=== PATIENT | female | born 1995 | race Hispanic/Latino ===

== ENCOUNTER 2024-01-10 12:21 | Outpatient (CLI) | payer OTHER, SELFPAY ==
[2024-01-10 13:15] VITALS: BP 106/57; PULSE 84
[2024-01-10 13:16] LABS: Basophils Percent Auto 0.2 % (0.2-1.2); Eosinophils Absolute Auto 0.1 K/mm3 (0-0.3); Eosinophils Percent Auto 0.7 % (0-4.4); Hematocrit 35.3 % (37.0-47.0); Hemoglobin 11.6 g/dL (12.0-15.0); Immature Granulocyte Absolute 0.06 K/mm3 (0.00-0.031); Immature Granulocyte Percent A 0.7 % (0-0.5); Lymphocytes Absolute Auto 1.45 K/mm3 (0.9-3.2); Lymphocytes Percent Auto 16.2 % (18.3-44.2); Mean Corpuscular HGB Conc 32.9 g/dl (32-36); Mean Corpuscular Volume 88.3 fl (80-100); Mean Platelet Volume 9.1 fl (7.4-10.4); Monocytes Absolute Auto 0.6 K/mm3 (0.1-0.6); Monocytes Percent Auto 6.4 % (2.6-8.5); Neutrophils Absolute Auto 6.8 K/mm3 (1.3-6.7); Neutrophils Percent Auto 75.8 % (45.5-73.1); Platelet Count Result 355 k/mm3 (150-375); Red Cell Distribution Width 14.1 % (11.5-14.5); White Blood Count 8.9 K/mm3 (4.5-10.0)
[2024-01-10 13:16] LABS: Appearance Urine Clear (Clear); Bilirubin Urine Negative (Negative); Blood Urine Negative (Negative); Color Urine Yellow (Yellow); Glucose Urine UA Negative (Negative); Ketones Urine Negative (Negative); Leukocyte Esterase Ur Negative LEU/UL (Negative); Nitrate Urine Negative (Negative); Protein Urine Negative (Negative); Specific Grav Ur 1.005 (1.001-1.035); Urobilinogen Urine 0.2 mg/dL (<2.0); pH Urine 6.5 (5.0-9.0)
[2024-01-10 13:17] LABS: Add Urine Microscopic? YES
[2024-01-10 13:29] VITALS: BP 109/63; PULSE 88
[2024-01-10 13:33] LABS: Alanine Aminotransferase 19 U/L (6-35); Albumin Level 4.2 g/dL (3.5-5.1); Alkaline Phosphatase 60 U/L (38-126); Anion Gap 8 mmol/L (4-12); Aspartate Amino Transferase 27 U/L (14-36); Bilirubin,Total 0.3 mg/dL (0.2-1.3); Blood Urea Nitrogen 8 mg/dL (7-17); Calcium 9.3 mg/dL (8.4-10.2); Carbon Dioxide 23 mmol/L (22-30); Chloride 106 mmol/L (98-107); Estimated Glomerular Filt Rate > 60; Glucose 87 mg/dL (65-110); Sodium 137 mmol/L (137-145); Uric Acid 2.9 mg/dL (2.5-7.5)
[2024-01-10 13:33] LABS: Creatinine Urine 17.9 mg/dL; Total Protein Urine Random 12 mg/dL; Ur Ttl Prot Creatinine Ratio 0.67 mg/mg (0-0.20)
[2024-01-10 13:35] VITALS: BP 108/53; PULSE 80
[2024-01-10 13:44] VITALS: BP 108/53; PULSE 80
== END 2024-01-10 14:00 | disposition home or self-care (01) ==
LOC: ANHOBOP 12:44 → ANHOBPP 12:46
PROVIDERS: Advanced Practice Midwife; Visit Provider Obstetrics & Gynecology
DX: O13.9 Gestational [pregnancy-induced] hypertension without significant proteinuria, unspecified trimester (principal); Z3A.00 Weeks of gestation of pregnancy not specified
CPT/HCPCS: 36415; 80053; 81001; 82570; 84156; 84550; 85025; 99199

== ENCOUNTER 2024-01-11 13:27 | Outpatient (CLI) | payer OTHER, SELFPAY ==
[2024-01-11 13:37] VITALS: BMI 28.8
[2024-01-11 14:20] LABS: Collection Time Urine 24 HOURS
[2024-01-11 14:59] LABS: Patient Weight 157 Lbs; Total Volume 24 Hour Urine 3000 ml
[2024-01-11 15:02] LABS: Specific Gravity Ur 1.015
[2024-01-11 15:16] LABS: Creatinine Urine 40.3 mg/dL; Total Protein Urine 24 Hr 300 mg/24hr (28-141); Total Protein Urine Random 10 mg/dL
== END 2024-01-11 13:28 | disposition home or self-care (01) ==
LOC: ANHOBOP 13:32
PROVIDERS: Visit Provider Advanced Practice Midwife
DX: Z34.90 Encounter for supervision of normal pregnancy, unspecified, unspecified trimester (principal); Z3A.00 Weeks of gestation of pregnancy not specified
CPT/HCPCS: 81050; 82575; 84156

== ENCOUNTER 2024-04-18 04:47 | Inpatient (IN) | payer OTHER, MEDICAID, SELFPAY ==
[2024-04-18] VITALS (261 sets, daily range): BP systolic 81–154; BP diastolic 43–111; PULSE 62–180; TEMP 36.6–36.9; O2SAT 87–100
[2024-04-18 05:30] LABS: Basophils Percent Auto 0.1 % (0.2-1.2); Eosinophils Absolute Auto 0.1 K/mm3 (0-0.3); Eosinophils Percent Auto 1.3 % (0-4.4); Hematocrit 36.5 % (37.0-47.0); Hemoglobin 12.2 g/dL (12.0-15.0); Immature Granulocyte Percent A 0.9 % (0-0.5); Lymphocytes Absolute Auto 1.75 K/mm3 (0.9-3.2); Lymphocytes Percent Auto 16.3 % (18.3-44.2); Mean Corpuscular HGB Conc 33.4 g/dl (32-36); Mean Corpuscular Hemoglobin 29.1 pg (26-34); Mean Corpuscular Volume 87.1 fl (80-100); Mean Platelet Volume 9.2 fl (7.4-10.4); Monocytes Absolute Auto 0.7 K/mm3 (0.1-0.6); Monocytes Percent Auto 6.5 % (2.6-8.5); Neutrophils Percent Auto 74.9 % (45.5-73.1); Platelet Count Result 355 k/mm3 (150-375); Red Blood Count 4.19 M/mm3 (4.2-5.4); Red Cell Distribution Width 14.1 % (11.5-14.5); White Blood Count 10.7 K/mm3 (4.5-10.0)
[2024-04-18] MEDS: AMPICILLIN 2 GM/NS 100 ML 2 GM/100 ML BAG IVPB (05:38)
[2024-04-18] MEDS: LACTATED RINGERS 1,000 ML 125 ML IV CONT ×4 (05:38→18:04)
[2024-04-18] MEDS: miSOPROStol 25 MCG TABLET 50 MCG BUCCAL (05:41)
[2024-04-18 06:23] LABS: HIV 1/2 Ab P24 Ag Result Negative (Negative)
--- NOTE | 2024-04-18 07:17 | P.PNAN_ITS ---
Anes - Eval Pre Procedure Procedure: LABOR EPIDURAL Date/Time: 04/18/24 07:17 Surgeon: RANDY Preop Diagnosis: PAIN DURING LABOR Pre Op Diagnosis: Leaking Patient Data Age: 28 Gender: F Height: Weight: Last Vital Signs Pulse 94 04/18/24 07:04 BP 135/98 H 04/18/24 07:04 Pulse Ox 99 04/18/24 07:16 Allergies Allergy/AdvReac Type Severity Reaction Status Date / Time No Known Allergies Allergy Verified 04/09/24 14:18 Home Medications Medication Instructions Recorded Confirmed Type vits no.126-ferrous fum 1 tablet PO DAILY 04/09/24 04/09/24 History 28 mg iron-folic acid 800 mcg tablet (Classic ) Laboratory Tests 04/18/24 05:20 WBC 10.7 H K/mm3 (4.5-10.0) RBC 4.19 L M/mm3 (4.2-5.4) Hgb 12.2 g/dL (12.0-15.0) Hct 36.5 L % (37.0-47.0) MCV 87.1 fl (80-100) MCH 29.1 pg (26-34) MCHC 33.4 g/dl (32-36) RDW 14.1 % (11.5-14.5) Plt Count 355 k/mm3 (150-375) MPV 9.2 fl (7.4-10.4) Immature Gran % (Auto) 0.9 H % (0-0.5) Neut % (Auto) 74.9 H % (45.5-73.1) Lymph % (Auto) 16.3 L % (18.3-44.2) [place] % (Auto) 6.5 % (2.6-8.5) Eos % (Auto) 1.3 % (0-4.4) Baso % (Auto) 0.1 L % (0.2-1.2) Lymph # (Auto) 1.75 K/mm3 (0.9-3.2) [place] # (Auto) 0.7 H K/mm3 (0.1-0.6) Eos # (Auto) 0.1 K/mm3 (0-0.3) Baso # (Auto) 0.0 K/mm3 (0.0-0.1) Abs Immat Gran (auto) 0.10 H K/mm3 (0.00-0.031) Absolute Neuts (auto) 8.0 H K/mm3 (1.3-6.7) Absolute Nucleated RBC 0.000 K/mm3 (0.0-0.012) Nucleated RBC % 0.0 % (0.0-0.2) RPR Pending HIV 1&2 Ab/P24 Ag 4thGn Negative (Negative) Blood Type B Positive Antibody Screen Negative Patient hx anesthesia problems: none Family hx anesthesia problems: none Results Review: All pre-operative results and documents have been reviewed as part of the pre- operative evaluation. [facility] Past Medical History Medical History (Updated 04/18/24 @ 07:18 by Milli Poon CRNA) IUP (intrauterine ), incidental Family History Family History (Updated 04/09/24 @ 14:37 by Carol Serrano RN) Other Unknown family medical history Social History Social History Substance use: never Spiritual care concerns: No Exam Day of Procedure 04/18/24 07:17
[2024-04-18] MEDS: AMPICILLIN 1 GM/NS 50 ML 1 GM/50 ML BAG IVPB ×3 (09:49→21:30)
[2024-04-18] MEDS: OXYTOCIN 30 UNITS/NS 500 ML 30 UNITS/500 ML BAG IV CONT (10:35)
[2024-04-18 11:56] LABS: Rapid Plasma Reagin Non-Reactive (NonReactive)
--- NOTE | 2024-04-18 13:32 | WPDOBADMIT ---
Obstetrics - Admit Note Admission Note: record reviewed. No pertinent additions to the history and/or any subsequent changes in the physical findings that are not consistent with the expected course of the were found. Patient presents after SROM of clear fluid at 0330. No fevers or chills, good movement. No strong contractions. S/p cytotec x1. Pitocin per protocol Additions to the history and/or subsequent changes in the physical findings follow. None.
[2024-04-18] MEDS: SODIUM CHLORIDE 0.9% IV 300 ML 600 ML I-UTERINE (17:46)
[2024-04-18] MEDS: ONDANSETRON INJ 4 MG/2 ML VIAL IV PUSH (22:13)
[2024-04-19] VITALS (30 sets, daily range): BP systolic 102–147; BP diastolic 45–83; PULSE 73–118; RESP 14–23; TEMP 36.4–37.1; O2SAT 97–100
--- NOTE | 2024-04-19 00:23 | PM.IMHP ---
H&P: HPI History of Present Illness Date/Time: 04/19/24 00:23 Chief Complaint: update CNM at , pitocin turned off due to intolerance to labor, pt comfortable with epidural. Review of Systems Review of Systems: All systems reviewed & are unremarkable except as noted in HPI and below PMFSH Past Medical History Medical History (Updated 04/19/24 @ 00:39 by Marylou Espino CNM) IUP (intrauterine ), incidental Family History Family History (Updated 04/09/24 @ 14:37 by Carol Serrano RN) Other Unknown family medical history Social History Social History Smoking status: Never smoker Substance use: never Do You Feel Safe in your Home?: Yes Lack of Transportation: No Lack of Food: Never True Current Housing: I Have Housing Concerned About Future Housing: No Difficulty Paying Gas/Electric Bills: No Difficulty Paying for Meds: No Currently Unemployed: No Education: Trade/Vocational Certificate Difficulty w/ Childcare or Family Care: No Spiritual care concerns: No Meds Home Medications and Allergies Home Medications Medication Instructions Recorded Confirmed Type vits no.126-ferrous fum 1 tablet PO DAILY 04/09/24 04/09/24 History 28 mg iron-folic acid 800 mcg tablet (Classic ) Allergies Allergy/AdvReac Type Severity Reaction Status Date / Time No Known Allergies Allergy Verified 04/09/24 14:18 Vital Signs Vital Signs - 24 hr 04/18/24 05:01 04/18/24 05:06 04/18/24 05:11 Temperature Pulse Rate Blood Pressure Pulse Oximetry 99 99 98 Oxygen Delivery 04/18/24 05:16 04/18/24 05:19 04/18/24 05:43 Temperature Pulse Rate Blood Pressure Pulse Oximetry 98 97 97 Oxygen Delivery 04/18/24 05:48 04/18/24 05:53 04/18/24 05:58 Temperature Pulse Rate Blood Pressure Pulse Oximetry 100 99 98 Oxygen Delivery 04/18/24 06:03 04/18/24 06:08 04/18/24 06:13 Temperature Pulse Rate Blood Pressure Pulse Oximetry 99 100 99 Oxygen Delivery 04/18/24 06:18 04/18/24 06:23 04/18/24 06:27 Temperature Pulse Rate Blood Pressure Pulse Oximetry 100 100 98 Oxygen Delivery 04/18/24 06:28 04/18/24 06:33 04/18/24 06:33 Temperature Pulse Rate Blood Pressure Pulse Oximetry 96 99 97 Oxygen Delivery 04/18/24 06:35 04/18/24 06:38 04/18/24 06:43 Temperature Pulse Rate Blood Pressure Pulse Oximetry 99 99 99 Oxygen Delivery 04/18/24 06:48 04/18/24 06:53 04/18/24 06:58 Temperature Pulse Rate Blood Pressure Pulse Oximetry 100 99 100 Oxygen Delivery 04/18/24 07:03 04/18/24 07:04 04/18/24 07:10 Temperature Pulse Rate 94 Blood Pressure 135/98 H Pulse Oximetry 100 99 Oxygen Delivery 04/18/24 07:16 04/18/24 07:21 04/18/24 07:26 Temperature Pulse Rate Blood Pressure Pulse Oximetry 99 99 99 Oxygen Delivery 04/18/24 07:30 04/18/24 07:31 04/18/24 07:36 Temperature Pulse Rate 87 Blood Pressure 119/73 Pulse Oximetry 100 100 Oxygen Delivery 04/18/24 07:41 04/18/24 07:46 04/18/24 07:51 Temperature Pulse Rate Blood Pressure Pulse Oximetry 99 100 100 Oxygen Delivery 04/18/24 07:56 04/18/24 08:00 04/18/24 08:01 Temperature 36.6 C Pulse Rate 93 Blood Pressure 127/75 Pulse Oximetry 100 94 Oxygen Delivery 04/18/24 08:01 04/18/24 08:06 04/18/24 08:11 Temperature Pulse Rate Blood Pressure Pulse Oximetry 99 100 100 Oxygen Delivery 04/18/24 08:15 04/18/24 08:20 04/18/24 08:25 Temperature Pulse Rate Blood Pressure Pulse Oximetry 100 100 99 Oxygen Delivery 04/18/24 08:30 04/18/24 08:37 04/18/24 08:42 Temperature Pulse Rate 94 Blood Pressure 114/65 Pulse Oximetry 99 99 100 Oxygen Delivery 04/18/24 08:47 04/18/24 08:52 04/18/24 08:57 Temperature Pulse Rate Blood Press
[2024-04-19] MEDS: LACTATED RINGERS 1,000 ML 125 ML IV CONT (00:30)
[2024-04-19] MEDS: FAMOTIDINE 20 MG/2 ML VIAL IV PUSH (00:44)
[2024-04-19] MEDS: ACETAMINOPHEN 500 MG TABLET 1000 MG PO (00:45)
[2024-04-19] MEDS: ceFAZolin 2 GM/D5W 50 ML 2 GM/50 ML BAG IVPB (01:20)
[2024-04-19] MEDS: AZITHROMYCIN 500 MG/NS 250 ML 500 MG/250 ML BAG 250 MG IVPB (01:29)
--- NOTE | 2024-04-19 02:05 | W.PM.OBCSD ---
OB - Delivery Note Procedure Delivery date: 04/19/24 Pre-op diagnosis: Non-Reassuring Status and Positive Group B Strep (GBS) Post-op Diagnosis: Same Induction method: Per Misoprostol Protocol Delivery augmentation: Pitocin Delivery monitor: External FHT Prior to decision for section, ACOG/SM labor guidelines were considered and discussed with the patient and staff. Decision made to proceed with the section.: Yes Procedure Performed: Primary Primary branch: low cervical, transverse Surgeon: Robbie Mueller MD Anesthesia type: Epidural Description of Procedure/Findings: The patient was taken to the operating room where she was placed in the dorsal supine position with a leftward tilt. The electronic monitor was placed and heart rate was found to be reassuring. She was prepped and draped in the normal sterile fashion, and anesthesia was checked to be adequate. A Pfannenstiel skin incision was made with the scalpel and carried through to the underlying layer of fascia with the scalpel. The fascia was incised in the midline and the incision extended laterally with the Chopra scissors. The superior aspect of the fascial incision was then grasped with Gómez clamps, elevated, and the underlying rectus muscles dissected off bluntly and with Chopra scissors. Attention was then turned to the inferior aspect of the fascial incision, which in similar fashion was grasped, elevated, and the rectus muscles dissected off.? The rectus muscles were then in the midline, and the peritoneum entered bluntly. The peritoneal incision was extended superiorly and inferiorly with good visualization of the bladder. With the bladder blade providing retraction and visualization, the lower uterine segment was incised in a transverse fashion with the scalpel. The uterine incision was then extended laterally. The bladder blade was removed and the infant's head was elevated and delivered atraumatically. The remainder of the infant was then delivered without difficulty, and the infant's nose and mouth were suctioned with the bulb suction. The umbilical cord was doubly clamped and cut. The was then handed off to the waiting nursing staff. Specimens then obtained as listed below. The placenta was then removed manually and the uterus was exteriorized and cleared of all clots and debris. The uterine incision was repaired with 0-Monocryl in a running, interlocked fashion. The posterior cul-de-sac was manually cleared of all clots and debris. The uterus was returned to the abdomen. The gutters were then manually cleared of all clots and debris.? The uterine incision was visualized to be hemostatic. The fascia was reapproximated with 0-Vicryl in a running fashion. The subcutaneous tissues were irrigated with warmed normal saline, and hemostasis was assured. The skin was closed with 4-0 Monocryl in a running subcuticular stitch. Fundal pressure was applied to express remaining intrauterine clots and debris. The patient tolerated the procedure well. Sponge, lap, and needle counts were correct times three per nursing. The patient was taken to the recovery room in stable condition. Specimen: No Estimated Blood Loss: 215 Pathology: None sent Complications: No immediate complications Condition: Stable Disposition: Floor Baby Date of : 04/19/24 Weeks of gestation at delivery: 37 Infant gender: Female Weight (pounds): 5 Weight (ounces): 13 presentation: vertex position: Right Occiput Posterior Placenta delivery description: Expressed Cord Vessel Description: Delayed Cord Clamping and Around Extremity
[2024-04-19] MEDS: MORPHINE SULFATE INJ (*CRX) 10 MG/ML AMP 2 MG IV PUSH ×2 (03:20→03:55)
[2024-04-19] MEDS: OXYTOCIN 30 UNITS/NS 500 ML 30 UNITS/500 ML BAG 125 UNITS IV CONT (04:01)
--- NOTE | 2024-04-19 04:45 | OBPPTRN ---
Patient transferred to post room #286 via stretcher. Support person present. Oriented to unit, room, information board, rooming in, admission packet and security measures. Patient verbalizes understanding.
[2024-04-19] MEDS: DEXTROSE 5%/0.45% SOD CHL 1,000 ML 125 ML IV CONT (07:06)
[2024-04-19] MEDS: KETOROLAC 15 MG/ML VIAL (*BKC) IV PUSH ×3 (07:07→19:20)
[2024-04-19] MEDS: LIDOCAINE 5% PATCH 1 PATCH TRANSDERM (07:07)
[2024-04-19] MEDS: MULTIVIT/MIN/PREN/FOL AC/IRON TABLET 1 TAB PO (07:07)
[2024-04-19] MEDS: ACETAMINOPHEN 325 MG TABLET 650 MG PO ×3 (07:07→19:20)
[2024-04-19] MEDS: SIMETHICONE 80 MG TAB.CHEW PO ×3 (07:07→19:19)
[2024-04-19] MEDS: DOCUSATE SODIUM 100 MG CAPSULE PO (07:07)
--- NOTE | 2024-04-19 08:13 | WPDANLDNPN2 ---
Anes-Prog Note L&D-Neuraxial Date/Time: 04/19/24 08:13 Neuraxial medications: epidural PF morphine Opiod-related complaints: none Patient feedback: Patient satisfied with post-operative pain management.
--- NOTE | 2024-04-19 08:14 | WPDANLDPN2 ---
Anes-Prog Note L&D Date/Time: 04/19/24 08:14 Comfortable throughout: labor, delivery and section Neuraxial method: epidural Epidural/Spinal procedure site: clean & non-tender Neuro status: Neuro function grossly intact. Cardiovascular status: normal Respiratory status: normal Airway patency: baseline Mental status: baseline Post-Op hydration status: normal Vital Signs: Last Vital Signs Temp 36.6 C 04/19/24 02:08 Pulse 90 04/19/24 04:08 Resp 15 04/19/24 04:08 BP 147/65 H 04/19/24 04:08 Pulse Ox 100 04/19/24 04:08 O2 Del Method Room Air 04/19/24 04:08 Pain score (VAS): 2 I/O: Intake & Output 04/18/24 04/19/24 04/19/24 23:59 07:59 15:59 Intake Total 1000 1000 Output Total 290 Balance 1000 710 Patient feedback: Patient satisfied with anesthetic care.
[2024-04-19] MEDS: LORATADINE 10 MG TABLET PO (20:03)
[2024-04-20] MEDS: KETOROLAC 15 MG/ML VIAL (*BKC) IV PUSH (01:14)
[2024-04-20] MEDS: ACETAMINOPHEN 325 MG TABLET 650 MG PO ×4 (01:16→20:55)
[2024-04-20] MEDS: HYDROcodone/acetaminophen (*CRX) 5-325 MG TABLET 1 TAB PO (01:21)
[2024-04-20 04:45] VITALS: BP 106/65; PULSE 110; RESP 20; TEMP 37.3; O2SAT 99
[2024-04-20 05:52] LABS: Basophils Percent Auto 0.1 % (0.2-1.2); Eosinophils Absolute Auto 0.1 K/mm3 (0-0.3); Eosinophils Percent Auto 1.3 % (0-4.4); Hematocrit 33.2 % (37.0-47.0); Hemoglobin 10.3 g/dL (12.0-15.0); Immature Granulocyte Absolute 0.04 K/mm3 (0.00-0.031); Immature Granulocyte Percent A 0.4 % (0-0.5); Lymphocytes Absolute Auto 1.45 K/mm3 (0.9-3.2); Mean Corpuscular Volume 90.2 fl (80-100); Mean Platelet Volume 9.4 fl (7.4-10.4); Monocytes Absolute Auto 0.7 K/mm3 (0.1-0.6); Monocytes Percent Auto 6.4 % (2.6-8.5); Neutrophils Absolute Auto 8.8 K/mm3 (1.3-6.7); Neutrophils Percent Auto 78.8 % (45.5-73.1); Platelet Count Result 287 k/mm3 (150-375); Red Blood Count 3.68 M/mm3 (4.2-5.4); Red Cell Distribution Width 14.6 % (11.5-14.5); White Blood Count 11.2 K/mm3 (4.5-10.0)
[2024-04-20 07:55] VITALS: BP 105/57; PULSE 101; RESP 18; TEMP 36.4; O2SAT 100
[2024-04-20 08:00] VITALS: PULSE 101; RESP 18; O2SAT 100
--- NOTE | 2024-04-20 08:32 | WPDANLDNPN2 ---
Anes-Prog Note L&D-Neuraxial Date/Time: 04/20/24 08:32 Neuraxial medications: epidural PF morphine Opiod-related complaints: none Patient feedback: Patient satisfied with post-operative pain management.
--- NOTE | 2024-04-20 08:32 | WPDANLDPN2 ---
Anes-Prog Note L&D Date/Time: 04/20/24 08:32 Comfortable throughout: labor, delivery and section Neuraxial method: epidural Epidural/Spinal procedure site: clean & non-tender Neuro status: Neuro function grossly intact. Cardiovascular status: normal Respiratory status: normal Airway patency: baseline Mental status: baseline Post-Op hydration status: normal Vital Signs: Last Vital Signs Temp 36.4 C 04/20/24 07:55 Pulse 101 H 04/20/24 07:55 Resp 18 04/20/24 07:55 BP 105/57 L 04/20/24 07:55 Pulse Ox 100 04/20/24 07:55 O2 Del Method Room Air 04/19/24 04:08 Pain score (VAS): 2/10 I/O: Intake & Output 04/19/24 04/20/24 04/20/24 23:59 07:59 15:59 Output Total 850 Balance -850 Patient feedback: Patient satisfied with anesthetic care.
[2024-04-20] MEDS: DOCUSATE SODIUM 100 MG CAPSULE PO ×2 (08:52→17:46)
[2024-04-20] MEDS: MULTIVIT/MIN/PREN/FOL AC/IRON TABLET 1 TAB PO (08:52)
[2024-04-20] MEDS: SIMETHICONE 80 MG TAB.CHEW PO ×3 (08:53→17:46)
[2024-04-20] MEDS: IBUPROFEN 600 MG TABLET PO ×3 (08:53→20:55)
[2024-04-20] MEDS: LIDOCAINE 5% PATCH 1 PATCH TRANSDERM (11:40)
--- NOTE | 2024-04-20 13:10 | PC.NURSE ---
1125-Mother stated she wanted help to breastfeed; RN helped mother using the [employer] Wrapping Machine Operator. Mother was shown cross-cradle and football positions. Baby would grasp breast and suckle a few times but then falls asleep. RN told mother that she could attempt each feeding and if baby does not latch, she should give baby formula supplement. Mother stated that baby is still spitty and doesn't burp very good. RN demonstrated some ways to burp baby and explained that babies tend to take in more fluids/mucus at . Mother was afraid it was something she was doing wrong; RN assured mother that was not the case. RN instructed mother to call for help with .
[2024-04-20] MEDS: guaiFENesin 12 HR 600 MG TABCR PO (13:26)
[2024-04-20 20:25] VITALS: BP 108/70; PULSE 92; RESP 18; TEMP 37.2; O2SAT 100
[2024-04-20] MEDS: guaiFENesin/DEXTROMETHORPHAN 10 ML UDC 20 ML PO (20:55)
[2024-04-20] MEDS: HYDROcodone/acetaminophen (*CRX) 10-325 MG TABLET 1 TAB PO (20:55)
[2024-04-21] MEDS: IBUPROFEN 600 MG TABLET PO ×3 (04:05→20:35)
[2024-04-21] MEDS: ACETAMINOPHEN 325 MG TABLET 650 MG PO ×4 (04:05→20:36)
[2024-04-21] MEDS: guaiFENesin/DEXTROMETHORPHAN 10 ML UDC 20 ML PO (04:20)
--- NOTE | 2024-04-21 08:24 | PM.OBPNVD ---
OB - PN: Subj Subjective Date/time seen: 04/21/24 08:24 Patient comments: no complaints, pain well controlled, incisional pain, tolerating diet and flatus present OB - PN: Obj Data Labs 04/20/24 04:47 OB - PN A/P Plan day: 2 Plan: routine care Comments: POD#2 LTCS - no problems, Time Spent With Patient Time: Total time spent is greater than 50% in coordination of care (as documented) at patient's floor/unit and/or counseling patient: Exam Const: General: comfortable, no acute distress and alert Resp: Effort & Inspection: normal respiratory effort Auscultation: no crackles, no rales and no rhonchi Cardio: Rate: regular rate Heart sounds: no click, no murmurs and no rubs GI: Inspection: non-distended Auscultation: normal bowel sounds Other: Incision - CDI Extrem: General: normal to inspection, no pedal edema and no calf tenderness
[2024-04-21] MEDS: MULTIVIT/MIN/PREN/FOL AC/IRON TABLET 1 TAB PO (10:15)
[2024-04-21] MEDS: SIMETHICONE 80 MG TAB.CHEW PO ×2 (10:16→20:35)
[2024-04-21 10:18] VITALS: BP 114/70; PULSE 93; RESP 16; TEMP 37; O2SAT 96
[2024-04-21 19:56] VITALS: BP 118/60; PULSE 108; RESP 16; TEMP 37.3; O2SAT 100
[2024-04-21] MEDS: DOCUSATE SODIUM 100 MG CAPSULE PO (20:35)
[2024-04-21] MEDS: HYDROcodone/acetaminophen (*CRX) 5-325 MG TABLET 1 TAB PO ×2 (20:35→21:30)
[2024-04-21] MEDS: guaiFENesin 12 HR 600 MG TABCR PO (20:35)
[2024-04-21] MEDS: LIDOCAINE 5% PATCH 1 PATCH TRANSDERM (20:43)
--- NOTE | 2024-04-22 02:31 | PC.NURSE ---
04/21/98 at 2200 Patient viewed the version of the discharge video Mother & Baby Care, The First Two Weeks . Patient was given the opportunity and encouraged to ask questions. Patient verbalized understanding of information shared and has been given the mother/baby guide for home reference.
[2024-04-22] MEDS: ACETAMINOPHEN 325 MG TABLET 650 MG PO ×2 (03:00→09:05)
[2024-04-22] MEDS: IBUPROFEN 600 MG TABLET PO ×2 (03:00→09:05)
[2024-04-22 09:05] VITALS: BP 114/80; PULSE 77; RESP 16; TEMP 37; O2SAT 100
[2024-04-22] MEDS: SIMETHICONE 80 MG TAB.CHEW PO (09:05)
[2024-04-22] MEDS: MULTIVIT/MIN/PREN/FOL AC/IRON TABLET 1 TAB PO (09:05)
[2024-04-22] MEDS: guaiFENesin 12 HR 600 MG TABCR PO (09:05)
--- NOTE | 2024-04-22 10:10 | PM.OBPNVD ---
OB - PN: Subj Subjective Date/time seen: 04/22/24 10:10 Patient comments: no complaints, pain well controlled, incisional pain, tolerating diet and flatus present OB - PN: Obj Data Labs 04/20/24 04:47 OB - PN A/P Plan day: 3 Plan: routine care, discharge home and other Comments: Incision check in one week. Given precautions Time Spent With Patient Time: Total time spent is greater than 50% in coordination of care (as documented) at patient's floor/unit and/or counseling patient: Exam Const: General: comfortable, no acute distress and alert Resp: Effort & Inspection: normal respiratory effort Auscultation: no crackles, no rales and no rhonchi Cardio: Rate: regular rate Heart sounds: no click, no murmurs and no rubs GI: Inspection: non-distended GI Palp: No Tenderness to palpation present (GI) Auscultation: normal bowel sounds Other: Incision - CDI Extrem: General: normal to inspection, no pedal edema and no calf tenderness
--- NOTE | 2024-04-22 10:12 | PM.OBDSVD ---
DS: Admitting Diagnosis Discharge Date April 22, 2024 Admitting Diagnosis term DS: Discharge Diagnosis Discharge Diagnosis (1) delivery delivered: Code(s): O82 - Encounter for delivery without indication Status: Acute OB - DS: Summary OB Procedures : None OB Procedures Intrapartum: OB Procedures: : None Peripartum Data Procedures: Procedures Operation Date: 04/19/24 00:25 Actual Procedure Side Surgeon p Section Not Applicable Robbie Mueller MD Time Spent with Patient Time attestation: Total time spent providing and/or coordinating discharge services: DS: Data Data Completed and Pending Pending studies at discharge: Pending at discharge 04/19/24 01:37 Surgical [PTH] Routine Discharge Plan Discharge Discharging Clinician: Momo Patel Patient Disposition: Home, Self-Care Activity: pelvic rest Diet: regular Patient Instructions: Antibiotic Form Stand Alone Forms: General Discharge Information Follow-up/Referrals: Momo Patel MD [Physician] - Discharge Medications: Continued Classic 28 mg iron- 800 mcg Tablet 1 tablet PO DAILY Date of admission: 04/18/24 04:47 Primary Care Provider: UNKNOWN,DOCTOR Admitting Provider: Robbie Mueller Attending physician on admission: Robbie Mueller Condition: Stable
--- NOTE | 2024-04-24 16:03 | WPDHPUPDATE1 ---
History and Physical Update Update Date/Time: 04/24/24 16:03 unable to proceed with induction due to intolerance of labor, dr. cross notified, pt consented plan primary section History and Physical has been reviewed, including an updated exam of the patient. There are NO changes in the patient's condition. Risks, benefits, and alternatives have been discussed and questions answered. Patient agrees to proceed with procedure.
== END 2024-04-22 13:15 | disposition home or self-care (01) | DRG 788 ==
LOC: ANHOB2 04-22 10:41 → ANHLDR 04-24 08:19 → ANHOB2 04-24 08:19
PROVIDERS: Admitting Provider Obstetrics & Gynecology; Visit Provider Obstetrics & Gynecology
PROC: 10D00Z1 Extraction of Products of Conception, Low, Open Approach (ICD-10-PCS; CPT 59514; principal; 2024-04-19 00:25)
DX: O99.824 Streptococcus B carrier state complicating childbirth (principal); O76 Abnormality in fetal heart rate and rhythm complicating labor and delivery; O42.92 Full-term premature rupture of membranes, unspecified as to length of time between rupture and onset of labor; Z3A.37 37 weeks gestation of pregnancy; Z37.0 Single live birth
CPT/HCPCS: 36415; 85025; 86592; 86703; 86850; 86900; 86901; 88307; A9270; G0432; J0290; J0456; J0690; J1885; J2270; J2274; J2405; J2590; J2795; J7030; J7120